=== PATIENT | male | born 1990 | race African-American/Black ===

== ENCOUNTER 2021-05-23 23:39 | Emergency (ER) | payer OTHER ==
[2021-05-24 00:13] LABS: HEMOGLOBIN 13.9 gm/dl (14.0-17.5); RED BLOOD COUNT 4.69 M/UL (4.20-5.50); WHITE BLOOD COUNT 5.1 K/UL (4.5-11.0)
[2021-05-24 00:45] LABS: BUN/CREATININE RATIO 11 (0-10)
== END 2021-05-24 04:00 | disposition home or self-care (01) ==
LOC: ER1 23:39
PROVIDERS: Family Medicine
DX: R07.89 Other chest pain (principal); F17.200 Nicotine dependence, unspecified, uncomplicated
CPT/HCPCS: 71045; 80053; 82550; 82553; 83874; 84484; 85025; 85379; 93005; 99285